=== PATIENT | female | born 1995 | race African-American/Black ===

== ENCOUNTER 2019-10-18 20:53 | Emergency (ER) | payer MEDICAID, OTHER ==
[~2019-10-18] VITALS: Ht 154.9 cm; Wt 50.0 kg
[~2019-10-18 20:53] MED LIST: ERYT-109
[2019-10-18 21:07] VITALS: BP 110/71
== END 2019-10-18 22:54 | disposition left against medical advice (07) ==
LOC: ER 20:53
DX: Z53.21 Procedure and treatment not carried out due to patient leaving prior to being seen by health care provider (principal)